=== PATIENT | male | born 1985 | race Two or more races ===

== ENCOUNTER 2024-07-12 21:50 | Emergency (ER) | payer OTHER, MEDICAID, SELFPAY ==
[2024-07-12 21:51] VITALS: BMI 42.5
--- NOTE | 2024-07-12 21:55 | EKG_ITS ---
[facility] Test Date: 2024-07-12 Pat Name: MARY FAJARDO Department: Room: - Gender: Male Head Of Mobile: : 1985 Requested By: ED Temporary Provider Order Number: [id number] Reading MD: ED Temporary Provider Measurements Intervals [place] Rate: 89 P: -16 MA: 150 QRS: 20 QRSD: 93 T: 75 QT: 346 QTc: 423 Interpretive Statements SINUS RHYTHM NONSPECIFIC ST & T-WAVE ABNORMALITY No previous ECG available for comparison /store/S0/[id number].pdf
[2024-07-12 22:01] VITALS: BP 156/114; PULSE 88; RESP 18; TEMP 37.2; O2SAT 95
--- NOTE | 2024-07-12 22:04 | PD.EDRME ---
Rapid Medical Screening Exam RME Arrival date/time: 07/12/24 21:50 38 year old male present to Ed for c/o of chest pain, dizziness/headache sob, today I have greeted and performed a focused initial assessment of this patient. A comprehensive ED assessment and evaluation of the patient, analysis of all test results, and completion of the medical decision making process will be conducted by additional ED providers. Chief Complaint: Headache Time Seen by Provider: 07/12/24 22:02
--- NOTE | 2024-07-12 22:05 | XR_ITS ---
Examination: PA lateral chest 2 views Technique: Upright PA lateral chest 2 views Exam date and time: July 12, 2024 10:19 PM Indications: Chest pain shortness of breath today Findings: Mild to moderate elevation left hemidiaphragm Subsegmental atelectasis left base Normal heart size No pneumonia or pulmonary edema Impression: Subsegmental atelectasis left base Moderately air distended stomach
[2024-07-12 22:39] LABS: Basophils # (Auto) 0.1 Thou/mm3 (0.0-0.2); Basophils % (Auto) 1 % (0-2.5); Eosinophils # (Auto) 0.1 Thou/mm3 (0.0-0.5); Eosinophils % (Auto) 1 % (0-10); Hematocrit 44.7 % (41.0-53.0); Hemoglobin 14.6 g/dL (13.5-16.0); Immature Granulocytes % (Auto) 0 % (0-0); Immature Granulocytes Auto 0.04 Thou/mm3 (0.00-0.00); Lymphocytes # (Auto) 4.1 Thou/mm3 (1.0-4.8); Lymphocytes % (Auto) 39 % (10-50); Mean Corpuscular HGB Conc 32.7 g/dl (31.0-37.0); Mean Corpuscular Hemoglobin 28.2 pg (25.0-35.0); Mean Corpuscular Volume 86 fL (80-100); Monocytes # (Auto) 0.7 Thou/mm3 (0.0-0.8); Monocytes % (Auto) 7 % (0-12); Neutrophils # (Auto) 5.7 Thou/mm3 (1.8-7.7); Neutrophils % (Auto) 53 % (37-80); Nucleated Red Blood Cell % 0 /100 WBC (0); Platelet Count 276 Thou/mm3 (140-440); RDW Standard Deviation 41.1 fL (35.1-43.9); Red Blood Count 5.18 Miln/mm3 (4.50-5.90); White Blood Count 10.8 Thou/mm3 (3.8-10.6)
[2024-07-12 22:56] LABS: Alanine Aminotransferase 95 U/L (10-49); Albumin, Serum 4.9 gm/dL (3.5-5.0); Albumin/Globulin Ratio 1.7 (1.2-2.2); Alkaline Phosphatase 68 U/L (46-116); Anion Gap 6 (7-16); Aspartate Amino Transferase 43 U/L (0-34); BUN/Creatinine Ratio 13 Ratio (12-20); Bilirubin,Total 0.4 mg/dL (0.3-1.2); Blood Urea Nitrogen 10 mg/dL (9-23); Carbon Dioxide 27.7 mMol/L (20.0-31.0); Chloride 105 mMol/L (98-107); Creatinine (Component) 0.8 mg/dL (0.6-1.3); Globulin 2.9 gm/dL (2.3-3.5); Glucose 102 mg/dL (74-106); Lipase 45 U/L (12-53); Magnesium 2.4 mg/dL (1.6-2.6); Osmolality,Calculated 276 (275-295); Potassium 3.9 mMol/L (3.4-5.1); Sodium 139 mMol/L (136-145); Total Protein 7.8 gm/dL (5.7-8.2); Troponin I < 0.020 ng/mL (0.0-0.045); eGFR > 60 See Note
[2024-07-13 00:36] VITALS: BP 151/104; PULSE 98; RESP 18; TEMP 36.6; O2SAT 94
[2024-07-13 01:25] LABS: Troponin I < 0.020 ng/mL (0.0-0.045)
[2024-07-13 01:56] VITALS: BP 139/83; PULSE 87; RESP 19; O2SAT 95
[2024-07-13] MEDS: ONDANSETRON ODT 4 MG TABRAP PO (02:00)
[2024-07-13 02:34] VITALS: BP 130/90
--- NOTE | 2024-07-13 03:01 | EDNOTE_ITS ---
ED Chest Pain RME/HPI General Chief Complaint: Headache Stated Complaint: HIGH BLOOD PRESSURE AT HOME BP:180/110. Time Seen by Provider: 07/12/24 22:02 Arrival date/time: 07/12/24 21:50 RME / HPI RME / HPI narrative: 07/12/24 21:50 38 year old male present to Ed for c/o of chest pain, dizziness/headache sob, today I have greeted and performed a focused initial assessment of this patient. A comprehensive ED assessment and evaluation of the patient, analysis of all test results, and completion of the medical decision making process will be conducted by additional ED providers. This section includes all my notes and documentations, including HPI, PE, and ED course. Erlin Whiteside MD HPI: 38-year-old male here to be evaluated with chest pain. Concerned because he has high BP and diabetes. Earlier in the day, about 6 hours ago, he developed chest pain and epigastric pain and nausea and headache and dizziness and being clammy. No other complaints. ROS: Respiratory: negative except as documented in HPI. Gastrointestinal: negative except as documented in HPI. Musculoskeletal: negative except as documented in HPI. Skin: negative except as documented in HPI. Neurological: negative except as documented in HPI. Physical Exam: General: Alert and oriented. No acute distress when remaining still. Eyes: Conjunctivae and lids clear. ENT: No nasal congestion. Neck: Supple. No JVD. Heart: RRR. Lungs: No respiratory distress. Good air movement. No rhonchi, wheezing, rales. Chest: No tenderness. Abdomen: Soft with mild epigastric tenderness.. Normal bowel sounds. No distension. No rebound or guarding. Legs: No clubbing, cyanosis, edema. Skin: Warm and dry. Neuro: Alert and oriented X 3. I reviewed all diagnostic test results. My interpretation of the EKG is sinus rhythm with nonspecific ST-T changes. My interpretation of the chest x-ray is no acute findings. My review of the CT report is no acute findings. Blood tests unremarkable, including negative troponin X 2. At this point, diagnoses include hypertensive urgency and GERD. Treatment here included Zofran and clonidine and metoprolol. Significant improvement noted subjectively and objectively. Recommended more outpatient workup. Based on my best medical judgment, made decision no further evaluation or treatment indicated at this time. Patient understands and agrees to the discharge instructions customized and printed, see below. Discharge instructions from Dr. Whiteside: 1. After extensive evaluation, there is no life-threatening condition.? Such as heart attack. 2. Your symptoms were most likely due to high BP and GERD (acid reflux causing heartburn). 3. Zofran for nausea/vomiting. Famotidine and omeprazole as needed for heartburn. And metoprolol ER 50 mg at bedtime, you will live longer with lower BP and slower heart rate. 4. See a private doctor on 07/14/2024. To make sure there is no serious underlying heart condition, ask to help you get more tests for your heart that cannot be done here in the ER.? Such as Holter Monitor (cardiac monitoring at home from a day to even a month), heart stress test (on treadmill or with medication), echocardiogram (imaging of your heart structures), heart catherization (checking for blockages in your heart arteries), and a referral to see a Pharmacy Informatics Manager. To make sure there is no serious intra-abdominal condition, ask for help with more investigation not available here in the ER. Such as EGD or scoping the stomach, colonoscopy or scoping the colon, and referral to see basin operator. 5. Seek immediate medical care with worsening or with any concerns.?? Erlin Whiteside MD Related Data Previous Rx's ?Medication ?Instructions ?Recorded famotidine 40 mg tablet 40 mg PO QDAY #30 tabs 07/13/24 metoprolol succinate 50 mg capsule 50 mg PO QDAY #30 ea 07/13/24 sprinkle, ext. release 24 hr omeprazole 40 mg capsule,delayed 40 mg PO QDAY #30 caps 07/13/24 release ondansetron 4 mg disintegrating 4 mg PO TID PRN nausea and 07/13/24 tablet vomiting 5 days #10 tabs Allergies Allergy/AdvReac Type Severity Reaction Status Date / Time No Known Allergies Allergy Verified 07/12/24 21:54 Course Quality Measures none Orders Category Date Time Status Bedside COVID-19 Antigen Test NOW Care 07/12/24 22:05 Active Bedside Influenza A&B Antigen Test NOW Care 07/12/24 22:05 Completed EKG (ED ONLY) *Do not use* NOW Care 07/12/24 21:55 Completed EKG (ED Only) Stat Exams 07/12/24 21:55 Draft XR chest 2V Stat Exams 07/12/24 22:05 Completed CBC Stat Lab 07/12/24 22:10 Completed CMP [Comprehensive Metabolic Panel] Stat Lab 07/12/24 22:10 Completed Lipase Stat Lab 07/12/24 22:10 Completed Mag [Magnesium] Stat Lab 07/12/24 22:10 Completed Troponin I Stat Lab 07/12/24 22:10 Completed Troponin I Stat Lab 07/13/24 00:48 Completed Metoprolol Tartrate [Lopressor] Med 07/13/24 01:42 Discontinued 50 mg PO X1 ONE Ondansetron Odt [Zofran Odt] Med 07/13/24 01:42 Discontinued 4 mg PO X1 ONE Ondansetron Odt [Zofran Odt] Med 07/13/24 01:42 Discontinued 4 mg PO X1 ONE cloNIDine HCL [Catapres] Med 07/13/24 01:42 Discontinued 0.2 mg PO X1 ONE Vital Signs Vital signs: Vital Signs Temperature 99 F 07/12/24 22:01 Pulse Rate 88 07/12/24 22:01 Respiratory Rate 18 07/12/24 22:01 Blood Pressure 156/114 H 07/12/24 22:01 Pulse Oximetry (%) 95 07/12/24 22:01 Oxygen Delivery Method Room Air 07/12/24 22:01 Chest Pain Patient data External records reviewed:: [facility] previous records Clinical information provided by:: patient and spouse Social determinants that could affect healthcare access:: none Patient has the following chronic illnesses:: Hypertension and diabetes How is presenting disease/condition affected by chronic disease/condition?: exacerbated by Evaluation data The following diagnostics were reviewed and interpreted by me:: lab results, radiology exam(s) and EKG tracing(s) Lab and/or radiology exams considered but not ordered:: None Interpretation Summary: Normal diagnostic tests Medications / Prescriptions Medications or Prescriptions considered but not ordered:: None Medication administrations:: Medication Administration History Discontinued Medications Clonidine (Clonidine Hcl 0.1 Mg Tablet) 0.2 mg PO X1 ONE Stop: 07/13/24 01:43 Last Admin: 07/13/24 02:34 Dose: Not Given Documented By: SE Non-Admin Reason: Contraindicated Metoprolol Tartrate (Metoprolol Tartrate 25 Mg Tablet) 50 mg PO X1 ONE Stop: 07/13/24 01:43 Last Admin: 07/13/24 02:34 Dose: Not Given Documented By: Non-Admin Reason: Contraindicated Ondansetron HCl (Ondansetron Odt 4 Mg Tabrap) 4 mg PO X1 ONE; Protocol Stop: 07/13/24 01:43 Last Admin: 07/13/24 02:01 Dose: Not Given Documented By: Non-Admin Reason: Duplicate Medication on eMAR Ondansetron HCl (Ondansetron Odt 4 Mg Tabrap) 4 mg PO X1 ONE; Protocol Stop: 07/13/24 01:43 Last Admin: 07/13/24 02:00 Dose: 4 mg Documented By: SE Quintero and metoprolol and clonidine Consultations Consultation(s) initiated? (list below): No Diagnosis Chest Pain Differential Diagnosis: pneumothorax, stable angina, unstable angina pectoris, atypical chest pain, st elevation myocardial infarction, costochondritis, chest pain and biliary colic Most likely diagnosis given after review of the tests above:: GERD and high BP Admission Indicated Admission indicated?: not indicated Explain why admission is indicated or not indicated:: Admission criteria not met Admission Request Was there a request for admission?: No Disposition Plan Disposition Plan: Discharge Discharge Attestation Discharge Attestation: The patient and all family members were given an opportunity to ask questions and understood the discharge instructions. Discharge instructions specifically effects, indications for sooner follow up or return to the emergency department, and the expected course of current diagnosis. Patient condition: Stable Discharge Plan Prescriptions/Referrals Prescriptions/Med Rec: New famotidine 40 mg tablet 40 mg PO QDAY Qty: 30 0RF omeprazole 40 mg capsule,delayed release(DR/EC) 40 mg PO QDAY Qty: 30 0RF ondansetron 4 mg tablet,disintegrating 4 mg PO TID PRN (Reason: nausea and vomiting) 5 Days Qty: 10 0RF metoprolol succinate 50 mg capsule,sprinkle,ER 24hr 50 mg PO QDAY Qty: 30 0RF Referrals: No Primary/Family,Physician [Primary Care Provider] - In 1 week Problem List Clinical Impression: Hypertension Patient/Caregiver Discharge Instructions Discharge Activity: activity as tolerated Education Materials: ED GERD (Adult), ED Hypertension, Established Additional Instructions: Discharge instructions from Dr. Whiteside: 1. After extensive evaluation, there is no life-threatening condition.? Such as heart attack. 2. Your symptoms were most likely due to high BP and GERD (acid reflux causing heartburn). 3. Zofran for nausea/vomiting. Famotidine and omeprazole as needed for heartburn. And metoprolol ER 50 mg at bedtime, you will live longer with lower BP and slower heart rate. 4. See a private doctor on 07/14/2024. To make sure there is no serious underlying heart condition, ask to help you get more tests for your heart that cannot be done here in the ER.? Such as Holter Monitor (cardiac monitoring at home from a day to even a month), heart stress test (on treadmill or with medication), echocardiogram (imaging of your heart structures), heart catherization (checking for blockages in your heart arteries), and a referral to see a Pharmacy Informatics Manager. To make sure there is no serious intra-abdominal condition, ask for help with more investigation not available here in the ER. Such as EGD or scoping the stomach, colonoscopy or scoping the colon, and referral to see basin operator. 5. Seek immediate medical care with worsening or with any concerns.?? Print Language: New Zealander Stand Alone Forms: [employer] Award Info., Patient Portal Info Letter
== END 2024-07-13 02:43 | disposition home or self-care (01) ==
PROVIDERS: Physician Assistant; Emergency Provider Emergency Medicine
DX: I10 Essential (primary) hypertension (principal); R94.31 Abnormal electrocardiogram [ECG] [EKG]
CPT/HCPCS: 36415; 71046; 80053; 83690; 83735; 84484; 85025; 87400; 87811; 93005; 99283; Q0162

== ENCOUNTER 2025-03-05 22:31 | Emergency (ER) | payer OTHER, MEDICAID, SELFPAY ==
[2025-03-05 22:32] VITALS: BMI 39.0
[2025-03-05 22:52] VITALS: BP 186/127; PULSE 83; RESP 16; TEMP 36.9; O2SAT 97
--- NOTE | 2025-03-05 22:54 | EDNOTE_ITS ---
ED Male Genitalurinary RME/HPI General Chief complaint: Urogenital-Male Stated complaint: RASH IN PRIVATE AREA Time Seen by Provider: 03/05/25 22:52 Arrival date/time: 03/05/25 22:31 RME / HPI RME / HPI Narrative: This section includes all my notes and documentations, including HPI, PE, and ED course. Erlin Whiteside MD HPI: 39 y/o male presents with red, itchy, and burning at the tip of the penis x several weeks. Denies hematuria and dysuria. No concern for sexually transmitted infections. No other complaints. ROS: All negative except as documented in HPI. Physical Exam: General: Alert and oriented. Eyes: Conjunctivae and lids clear. ENT: No nasal congestion. Neck: Supple. Lungs: No respiratory distress. Skin: Warm and dry. Neuro: Alert and oriented X 3. Genitalia: Normal uncircumcised penis noted. Glans penis and foreskin remarkable for erythema and inflammation and classic satellite lesions. At this point, diagnoses include: Balanitis. Prescribed Lotrisone cream and Keflex and Diflucan and recommended outpatient management. Based on my best medical judgment, made decision no further evaluation or treatment indicated at this time. Patient understands and agrees to the discharge instructions customized and printed, see below. Discharge Instructions from Dr. Whiteside printed for you: 1. After evaluation, you have balanitis. See attached handout. 2. Use Lotrisone cream and take Keflex and Diflucan as prescribed. 3. Keep the area clean with antibacterial soap and complete dry after daily. Germs like to grow in dark and moist areas. 4. See a private doctor on 03/10/2025 if not completely better. 5. Seek immediate medical care with worsening or with any concerns. Erlin Whiteside MD Related Data Previous Rx's ?Medication ?Instructions ?Recorded famotidine 40 mg tablet 40 mg PO QDAY #30 tabs 07/13 metoprolol succinate 50 mg capsule 50 mg PO QDAY #30 e a 07/13/24 sprinkle, ext. release 24 hr omeprazole 40 mg capsule,delayed 40 mg PO QDAY #30 cap s 07/13/24 release cephalexin 500 mg capsule 500 mg PO QID 5 days #20 cap s 03/05/25 clotrimazole-betamethasone 1 1 applic topical BID 7 da ys #45 03/05/25 %-0.05 % topical cream grams fluconazole 200 mg tablet 200 mg PO QDAY 5 days #5 tab s 03/05/25 (Diflucan) Allergies Allergy/AdvReac Type Severity Reaction Status Date / Time No Known Allergies Allergy Verified 07/12/24 21:54 Review of Systems Review of Systems Systems Reviewed: All systems reviewed, normal except as documented ED Exam Narrative Physical exam: Refer to HPI Course Quality Measures none Vital Signs Vital signs: Vital Signs Temperature 98.5 F 03/05/25 22:52 Pulse Rate 83 03/05/25 22:52 Respiratory Rate 16 03/05/25 22:52 Blood Pressure 186/127 H 03/05/25 22:52 Pulse Oximetry (%) 97 03/05/25 22:52 Oxygen Delivery Method Room Air 03/05/25 22:52 Urogenital - Male MDM Narrative MDM Narrative:: Scribe Attestation: IElma, am scribing for and in the presence of Dr. Whiteside. Provider Notation: Although this document has been carefully reviewed, there may still be some phonetic and other typographical errors.? These errors are purely grammatical due to imperfections in the software program and should not be construed in any way to? compromise the substance of the patient's medical care during this visit. 39 y/o male presents with red, itchy, and burning at the tip of the penis x several weeks. Denies hematuria and dysuria. No concern for sexually transmitted infections. No other complaints. Patient data External records reviewed:: [facility] previous records (Reviewed prior ED records from 07/13/24. Patient was seen for Hypertension.) Clinical information provided by:: patient Social determinants that could affect healthcare access:: none Patient has the following chronic illnesses:: None reported How is presenting disease/condition affected by chronic disease/condition?: no chronic disease Evaluation data The following diagnostics were reviewed and interpreted by me:: other (specify) (N/A) Lab and/or radiology exams considered but not ordered:: None Interpretation Summary: N/A Medications / Prescriptions Medications or Prescriptions considered but not ordered:: None Medication administrations:: N/A Consultations Consultation(s) initiated? (list below): No Diagnosis Urogenital Male Differential Diagnosis: urinary tract infection, priapism, urethritis and genital herpes simplex Most likely diagnosis given after review of the tests above:: Balanitis Admission Indicated Admission indicated?: not indicated Explain why admission is indicated or not indicated:: With no condition needing emergent intervention, there was no indication for admission. Admission Request Was there a request for admission?: No Disposition Plan Disposition Plan: Discharge Discharge Attestation Discharge Attestation: The patient and all family members were given an opportunity to ask questions and understood the discharge instructions. Discharge instructions specifically effects, indications for sooner follow up or return to the emergency department, and the expected course of current diagnosis. Patient condition: Stable Discharge Plan Plan Patient Disposition: HOME (Self Care) Prescriptions/Referrals Prescriptions/Med Rec: New fluconazole [Diflucan] 200 mg tablet 200 mg PO QDAY 5 Days Qty: 5 0RF cephalexin 500 mg capsule 500 mg PO QID 5 Days Qty: 20 0RF clotrimazole-betamethasone 1-0.05 % cream 1 applic topical BID 7 Days Qty: 45 0RF No Action famotidine 40 mg tablet 40 mg PO QDAY Qty: 30 0RF omeprazole 40 mg capsule,delayed release(DR/EC) 40 mg PO QDAY Qty: 30 0RF metoprolol succinate 50 mg capsule,sprinkle,ER 24hr 50 mg PO QDAY Qty: 30 0RF Problem List Clinical Impression: Balanitis Patient/Caregiver Discharge Instructions Discharge Activity: activity as tolerated Education Materials: ED Balanitis Additional Instructions: Discharge Instructions from Dr. Whiteside printed for you: 1. After evaluation, you have balanitis. See attached handout. 2. Use Lotrisone cream and take Keflex and Diflucan as prescribed. 3. Keep the area clean with antibacterial soap and complete dry after daily. Germs like to grow in dark and moist areas. 4. See a private doctor on 03/10/2025 if not completely better. 5. Seek immediate medical care with worsening or with any concerns. Print Language: Wolof Stand Alone Forms: Tory Award Info., Patient Portal Info Letter
[2025-03-05 23:00] VITALS: BP 135/93
== END 2025-03-05 23:03 | disposition home or self-care (01) ==
LOC: SERX 23:22
PROVIDERS: Emergency Provider Emergency Medicine
DX: N48.1 Balanitis (principal)
CPT/HCPCS: 99283

== ENCOUNTER → 2025-04-11 | Outpatient (CLI) | payer OTHER, SELFPAY ==
--- NOTE | 2025-04-11 11:00 | XR_ITS ---
Examination: CT chest, without intravenous contrast. Sagittal and coronal 2-D reconstructions. Exam date and time: April 11, 2025 1143 hours INDICATIONS: Diagnosis solitary pulmonary nodule CTDI:vol (mGy) 21.1 DLP: (mGycm) 768 Technique: Multiple 3.0 mm axial sections of the chest to been obtained. Bone and lung density settings are obtained. Sagittal and coronal 2-D reconstructions have been obtained. Low dose protocols were performed. One or more of the following dose reduction techniques were used; automated exposure control, adjustment of the mA and/or KV according to patient size, use of iterative reconstruction technique. Findings: No thoracic lytic aneurysm dilatation Moderate calcification left anterior descending coronary artery. Mild enlargement cardiac contour. Atelectasis in the left lower lobe. No pneumonia or pulmonary edema, pleural disease, or pulmonary nodules No visualized liver or splenic lesion No gallstones IMPRESSION: Moderate calcification left anterior descending coronary artery. No pneumonia pulmonary edema or pleural disease No pulmonary nodules
== END | disposition home or self-care (01) ==
DX: I25.10 Atherosclerotic heart disease of native coronary artery without angina pectoris (principal)
CPT/HCPCS: 71250